=== PATIENT | male | born 1950 | race Caucasian/White ===

== ENCOUNTER 2023-01-19 14:47 | Inpatient (IN) | payer MEDICARE ==
[~2023-01-19] VITALS: Ht 188 cm; Wt 98.0 kg
[2023-01-19 15:14] LABS: BASOPHILS % (AUTO) 0.6 % (0-1); EOSINOPHILS # (AUTO) 0.1 X10'3 (0-0.9); EOSINOPHILS % (AUTO) 1.1 % (0-6); HEMATOCRIT 41.5 % (42.0-52.0); LYMPHOCYTES # (AUTO) 1.2 X10'3 (1.1-4.8); LYMPHOCYTES % (AUTO) 18.3 % (21-51); MEAN CORPUSCULAR HEMOGLOBIN 29.7 PG (27.0-31.0); MEAN CORPUSCULAR HGB CONC 33.9 g/dL (33.0-36.5); MEAN CORPUSCULAR VOLUME 87.7 FL (78-98); MEAN PLATELET VOLUME 7.3 FL (7.4-10.4); MONOCYTES # (AUTO) 0.6 X10'3 (0-0.9); MONOCYTES % (AUTO) 8.5 % (2-12); NEUTROPHILS # (AUTO) 4.7 X10'3 (1.8-7.7); NEUTROPHILS % (AUTO) 71.5 % (42-75); PLATELET COUNT 264 X10'3 (140-440); RED BLOOD COUNT 4.73 X10'6 (4.70-6.10); RED CELL DISTRIBUTION WIDTH 13.7 % (11.5-14.5); WHITE BLOOD COUNT 6.5 X10'3 (4.5-11.0)
[2023-01-19 15:29] LABS: ALBUMIN 3.8 G/DL (3.4-5.0); ANION GAP 8 (8-16); BILIRUBIN,TOTAL 0.5 MG/DL (0.1-1.0); BLOOD UREA NITROGEN 28 MG/DL (7-18); BUN/CREATININE RATIO 20.9 (10.0-20.0); CALCIUM 9.7 MG/DL (8.5-10.1); CHLORIDE 104 MMOL/L (99-107); CREATININE 1.34 MG/DL (0.60-1.10); GLUCOSE 99 MG/DL (70-104); POTASSIUM 4.9 MMOL/L (3.5-5.1); SODIUM 140 MMOL/L (135-145); TOTAL CARBON DIOXIDE 27.7 MMOL/L (24-32); TOTAL PROTEIN 6.6 G/DL (6.4-8.2); eCRCL 58 ML/MIN; eGFR 52 ML/MIN
[2023-01-19 15:30] LABS: ALANINE AMINOTRANSFERASE 23 U/L (12-78); ALBUMIN/GLOBULIN RATIO 1.4 (1.1-1.5); ALKALINE PHOSPHATASE 68 IU/L (46-116); ASPARTATE AMINO TRANSFERASE 22 U/L (10-37)
[2023-01-19 15:37] LABS: PRO BRAIN NATRIURETIC PEPTIDE 1213 PG/ML (0-125)
[2023-01-19] MEDS ORDERED: CHOL20002 PO (16:46)
[2023-01-19] MEDS ORDERED: QUET25TA PO (16:46)
[2023-01-19] MEDS ORDERED: DONE-46 PO ×2 (16:46→16:59)
[2023-01-19] MEDS ORDERED: FLO0.4C PO (16:46)
[2023-01-19] MEDS ORDERED: GLUC-95 PO (16:46)
[2023-01-19] MEDS ORDERED: DOCU100C40 PO (16:46)
[2023-01-19] MEDS ORDERED: heparin 10,000 units/1 ML INJ IV ONE (17:10)
[2023-01-19] MEDS ORDERED: normal saline 1000ML IV soln IVB ONE (17:10)
[2023-01-19] MEDS ORDERED: aspirin 81mg tab.chew PO ONE (17:10)
[2023-01-19] MEDS ORDERED: nitroGLYCERIN 0.4mg/hour patch TD ONE (17:10)
[2023-01-19 17:37] LABS: MAGNESIUM 2.1 MG/DL (1.5-2.4)
[2023-01-19 17:37] LABS: APTT 28 SECONDS (22-32); PROTHROMBIN TIME 10.6 SECONDS (9.0-12.0)
[2023-01-19] MEDS ORDERED: heparin 25,000 UNIT/250ml bag 250 ML IV PRN ×2 (18:00→18:25)
[2023-01-19] MEDS ORDERED: magnesium Cl slow-release 64mg tablet PO PRN (18:35)
[2023-01-19] MEDS ORDERED: potassium Cl 20 mEq SR tablet PO PRN ×2 (18:35)
[2023-01-19] MEDS ORDERED: morphine 2 MG/ML inj. syringe IV PRN ×2 (18:35)
[2023-01-19] MEDS ORDERED: mag hydrox/Alum hydrox/simeth 30ml oral suspension PO PRN (18:35)
[2023-01-19] MEDS ORDERED: magnesium hydroxide 30ml (MOM) UD suspension PO PRN (18:35)
[2023-01-19] MEDS ORDERED: metoprolol tartrate 50mg tablet PO ONE (18:35)
[2023-01-19] MEDS ORDERED: PERFLUTREN PROTEIN-A MICROSPHR (Optison) 0.22 MG/ML 3ML VIAL IV ONE (18:35)
[2023-01-19] MEDS ORDERED: acetaminophen 325mg tablet PO PRN (18:35)
[2023-01-19] MEDS ORDERED: ondansetron/PF 4mg/2ml inj IV PRN (18:35)
[2023-01-19] MEDS ORDERED: potassium Cl 40MEQ/1/2NS 520ml 520 ML IV PRN (18:35)
[2023-01-19] MEDS ORDERED: magnesium 2GM in 50ml NS 50 ML IV PRN (18:35)
[2023-01-19] MEDS ORDERED: magnesium 4gm in 100ml NS 100 ML IV PRN (18:35)
[2023-01-19] MEDS ORDERED: nitroGLYCERIN-Tridil 50MG/D5W 250 ML IV SCH (18:50)
[2023-01-19] MEDS ORDERED: atorvastatin 20mg tablet PO ONE (18:55)
[2023-01-19] MEDS ORDERED: metoprolol succinate 25mg (24-HOUR) SR. Tablet PO ONE (18:55)
--- NOTE | 2023-01-19 19:10 | NUR ---
nitro patch removed and properly disposed of prior to starting ntg drip per order
[2023-01-19 19:33] LABS: THYROID STIMULATING HORMONE 1.04 ulU/ml (0.34-4.50)
[2023-01-19 19:34] LABS: HEMOGLOBIN A1C 5.5 % (4.5-6.2)
[2023-01-19] MEDS: K and/or MAG REPLACEMENT MC SCH (20:00)
[2023-01-19] MEDS ORDERED: docusate sod 100mg capsule PO SCH (20:00)
[2023-01-19] MEDS: normal saline 1000ml 1,000 ML IV SCH (20:03)
--- NOTE | 2023-01-19 20:07 | NUR ---
ED BED 12--TROPONIN 282, STEADILY DECREASING [id number] PAGE SENT TO DR SEYMOUR
[2023-01-19] MEDS: QUEtiapine 25mg tablet PO SCH ×2 (21:00→23:32)
--- NOTE | 2023-01-19 22:01 | NUR ---
ed bed 12--pt hypotensive /59. d/c or decrease nitro drip? [id number]
--- NOTE | 2023-01-19 22:01 | NUR ---
PER DR SEYMOUR, DECREASE NTG DRIP TO 1 MG
--- NOTE | 2023-01-19 22:01 | NUR ---
previous note is page sent to dr evans
--- NOTE | 2023-01-19 23:14 | NUR ---
PT PLACED ON HOSPITAL BED
--- NOTE | 2023-01-19 23:45 | NUR ---
Patient in room PCU 3012. I have received report from Keri Noel RN and had the opportunity to ask questions and assume patient care.
[2023-01-20] VITALS (13 sets, daily range): BP systolic 87–111; BP diastolic 47–69; PULSE 53–70; RESP 10–18; TEMP 97.7–98.6; O2SAT 96–99
[2023-01-20] MEDS ORDERED: heparin 10,000 units/1 ML INJ IV SCH (04:30)
[2023-01-20] MEDS ORDERED: heparin 10,000 units/1 ML INJ IV PRN (04:40)
[2023-01-20] MEDS: normal saline 1000ml 1,000 ML IV SCH ×2 (05:15→15:15)
--- NOTE | 2023-01-20 06:34 | NUR ---
Problems reprioritized. Patient report given, questions answered & plan of care reviewed with Juliane BHAKTA.
[2023-01-20 06:47] LABS: BASOPHILS % (AUTO) 0.5 % (0-1); EOSINOPHILS # (AUTO) 0.1 X10'3 (0-0.9); EOSINOPHILS % (AUTO) 3.1 % (0-6); HEMATOCRIT 39.9 % (42.0-52.0); HEMOGLOBIN 13.5 g/dl (14.0-17.9); LYMPHOCYTES # (AUTO) 1.4 X10'3 (1.1-4.8); LYMPHOCYTES % (AUTO) 29.3 % (21-51); MEAN CORPUSCULAR HEMOGLOBIN 29.6 PG (27.0-31.0); MEAN CORPUSCULAR HGB CONC 33.8 g/dL (33.0-36.5); MEAN CORPUSCULAR VOLUME 87.6 FL (78-98); MONOCYTES # (AUTO) 0.4 X10'3 (0-0.9); MONOCYTES % (AUTO) 8.9 % (2-12); NEUTROPHILS # (AUTO) 2.8 X10'3 (1.8-7.7); NEUTROPHILS % (AUTO) 58.2 % (42-75); PLATELET COUNT 221 X10'3 (140-440); RED BLOOD COUNT 4.55 X10'6 (4.70-6.10); RED CELL DISTRIBUTION WIDTH 13.3 % (11.5-14.5); WHITE BLOOD COUNT 4.9 X10'3 (4.5-11.0)
[2023-01-20 07:07] LABS: ALANINE AMINOTRANSFERASE 14 U/L (12-78); ALBUMIN 3.2 G/DL (3.4-5.0); ALBUMIN/GLOBULIN RATIO 1.2 (1.1-1.5); ALKALINE PHOSPHATASE 57 IU/L (46-116); ANION GAP 6 (8-16); ASPARTATE AMINO TRANSFERASE 20 U/L (10-37); BILIRUBIN,TOTAL 0.6 MG/DL (0.1-1.0); BLOOD UREA NITROGEN 21 MG/DL (7-18); BUN/CREATININE RATIO 22.3 (10.0-20.0); CALCIUM 9.1 MG/DL (8.5-10.1); CHLORIDE 107 MMOL/L (99-107); CHOL/HDL RATIO 2.9 (0.00-4.99); CHOLESTEROL 193 MG/DL (0-200); CREATININE 0.94 MG/DL (0.60-1.10); GLUCOSE 87 MG/DL (70-104); HDL CHOLESTEROL 66 MG/DL (35-60); LDL CHOLESTEROL 109 MG/DL (50-100); MAGNESIUM 2.1 MG/DL (1.5-2.4); PHOSPHORUS 3.5 MG/DL (2.3-4.5); POTASSIUM 4.4 MMOL/L (3.5-5.1); SODIUM 140 MMOL/L (135-145); TOTAL CARBON DIOXIDE 27.3 MMOL/L (24-32); TOTAL PROTEIN 5.8 G/DL (6.4-8.2); TRIGLYCERIDES 26 MG/DL (20-135); eCRCL 83 ML/MIN; eGFR 79 ML/MIN
[2023-01-20] MEDS: K and/or MAG REPLACEMENT MC SCH (08:00)
[2023-01-20] MEDS ORDERED: tamsulosin 0.4mg capsule PO SCH (08:00)
[2023-01-20] MEDS ORDERED: donepezil 5mg tablet PO SCH (08:00)
[2023-01-20] MEDS ORDERED: metoprolol succinate 25mg (24-HOUR) SR. Tablet PO SCH (08:00)
[2023-01-20] MEDS ORDERED: docusate sod 100mg capsule PO SCH (08:00)
[2023-01-20] MEDS ORDERED: atorvastatin 20mg tablet PO SCH (08:00)
[2023-01-20] MEDS ORDERED: aspirin 81mg, enteric-coated 1 TAB TABLET.DR PO SCH (08:00)
[2023-01-20] MEDS ORDERED: cholecalciferol (vitamin D3) 1,000 unit (25mcg) tablet PO SCH (08:00)
--- NOTE | 2023-01-20 13:45 | NUR ---
plan to do stress test, BP is 95/55, Dr Flanagan aware, gave verbal to give NS 500ml bolus. Pt is asymptomatic, denies feeling dizzy, lightheaded, a/o x3, skin p/w/d. Has been playing cards with family.
[2023-01-20] MEDS ORDERED: normal saline 500ml IV soln 500 ML IV ONE (13:50)
--- NOTE | 2023-01-20 13:51 | NUR ---
500ml NS IVF bolus running, IV to rt AC is patent and clear
--- NOTE | 2023-01-20 14:10 | NUR ---
pt to nuc med for stress test. Able to transfer self without assist from bed to wheelchair
[2023-01-20] MEDS ORDERED: regadenoson 0.4mg/5ml syringe IV ONE (14:25)
[2023-01-20] MEDS ORDERED: aminophylline inj. 0 ML IV ONE (14:38)
[2023-01-20] MEDS ORDERED: METO-395 PO (17:15)
[2023-01-20] MEDS ORDERED: ATOR20TA66 PO (17:15)
[2023-01-20] MEDS ORDERED: ASPI-1071 PO (17:15)
--- NOTE | 2023-01-20 17:45 | NUR ---
Discharge instructions discussed with pt and spouse. All questions answered. Pt and spouse verbalize understanding of all instructions.
== END 2023-01-20 17:55 | disposition home or self-care (01) | DRG 280 ==
LOC: ER 14:48 → ED HOLD 18:56 → PCU 3S 01-20 00:30
PROVIDERS: ADMIT Family Medicine; ATTEND Family Medicine
PROC: 4A02XM4 Measurement of Cardiac Total Activity, External Approach (ICD-10-PCS; principal; 2023-01-20)
PROC: 3E073KZ Introduction of Other Diagnostic Substance into Coronary Artery, Percutaneous Approach (ICD-10-PCS; 2023-01-20)
DX: I48.0 Paroxysmal atrial fibrillation (principal); I21.A1 Myocardial infarction type 2; N17.0 Acute kidney failure with tubular necrosis; I48.92 Unspecified atrial flutter; Z96.653 Presence of artificial knee joint, bilateral; Z96.619 Presence of unspecified artificial shoulder joint; F03.90 Unspecified dementia, unspecified severity, without behavioral disturbance, psychotic disturbance, mood disturbance, and anxiety; N40.0 Benign prostatic hyperplasia without lower urinary tract symptoms; F17.290 Nicotine dependence, other tobacco product, uncomplicated; Z79.899 Other long term (current) drug therapy
CPT/HCPCS: 36415; 71045; 78452; 80053; 80061; 83036; 83735; 83880; 84100; 84443; 84484; 85025; 85610; 85730; 87081; 93005; 93017; 93306; 99285; A9500; G0378; J0280; J1644; J2785; J3490; J7030; J7040